=== PATIENT | male | born 1970 ===

== ENCOUNTER 2017-03-18 15:42 | Emergency (ER) | payer SELFPAY ==
--- NOTE | 2017-03-18 16:01 | C.PDOC ---
History Of Present Illness 46 yo male w/o significant PMHx come in for evaluation of chills, body aches, sore throat and cough gradually developed for past week. Pt reports, ' was unable to sleep last night due to cough". Pt admits, use OTC medication without improvement. Otherwise, pt denies high fever, headache, drooling, dyspnea, wheezing, abd. pain, V/D, food intolerance, UTI sx, rash. At the time of evaluation, pt is awake, not in any apparent distress. Time Seen by Provider: 03/18/17 16:01 History Per: Patient History/Exam Limitations: None Onset/Duration Of Symptoms: Days (1 week) Current Symptoms Are (Timing): Still Present Past Medical History Reviewed: Historical Data, Nursing Documentation, Vital Signs Vital Signs: Last Vital Signs Temp 98.6 F 03/18/17 16:03 Pulse 78 03/18/17 18:08 Resp 16 03/18/17 18:08 BP 138/75 03/18/17 18:08 Pulse Ox 98 03/18/17 18:08 Family History: States: No Known Family Hx - Social History Hx Tobacco Use: No Hx Alcohol Use: No Hx Substance Use: No - Immunization History Hx Tetanus Toxoid Vaccination: No Hx Influenza Vaccination: No Hx Pneumococcal Vaccination: No Review Of Systems Except As Marked, All Systems Reviewed And Found Negative. Constitutional: Positive for: Chills, Other ((+) body aches). Negative for: Fever ENT: Positive for: Throat Pain (sore throat) Respiratory: Positive for: Cough. Negative for: Wheezing Gastrointestinal: Negative for: Vomiting, Abdominal Pain, Diarrhea Neurological: Negative for: Headache Physical Exam - Physical Exam Appears: Well, Non-toxic, No Acute Distress Skin: Normal Color, Warm, Dry, No Rash Head: Normacephalic Eye(s): bilateral: PERRL Ear(s): Bilateral: Normal Nose: No Flaring, Discharge (copious clear B/L with congestion B/L) Oral Mucosa: Moist, No Drooling Tongue: Normal Appearing Lips: Normal Appearing Throat: Erythema (mild B/L), No Exudate, No Drooling Neck: Trachea Midline, Supple Cardiovascular: Rhythm Regular Respiratory: No Decreased Breath Sounds, No Accessory Muscle Use, No Stridor, Wheezing (scattered Right base exp wheezing) Gastrointestinal/Abdominal: Soft, No Tenderness, No Distention, No Guarding Back: No CVA Tenderness Extremity: Normal ROM, No Deformity, No Swelling Neurological/Psych: Oriented x3, Normal Speech ED Course And Treatment O2 Sat by Pulse Oximetry: 98 (RA) Pulse Ox Interpretation: Normal - Radiology CXR: Interpreted by Me, Viewed By Me, Read By Radiologist CXR Interpretation: Yes: No Acute Disease Progress Note: On re-eval, pt is awake, comforatble, playful, not in any apparent distress. Fever improved, hemodynamicaly stable. Non-toxic. Tolerate Po well in ED. No evidence of dehydration. PulseOx 98% RA. ENT: no acute findings. neck: Supple, (-) meningeal sign. Lungs: CTA B/L, BS equal B/L. CVS : (+)S1S2, reg. Abd: benign. Neuorlogicaly intact. CXR review and appears normal. INfluenza (-). results review with PT, has clinical findings c/w brinchitis. Pt advised. ref. to F/u with PMD in 2-3 days for re-eval. return if any new changes. Medical Decision Making Medical Decision Making: PLAN: * CXR * Influenza * Albuterol IH * Motrin PO * Phenergan PO * Prednisone PO Disposition Counseled Patient/Family Regarding: Studies Performed, Diagnosis, Need For Followup, Rx Given - Disposition Referrals: [facility] [Outside] Disposition: HOME/ ROUTINE Disposition Time: 17:51 Condition: STABLE Additional Instructions: ENCOURAGE FLUIDS TAKE MEDICATION PRESCRIBED FOLLOW UP WITH PMD IN2 -3 DAYS FOR RE-EVALUATION. RETURN TO ED IF ANY WORSENING OR NEW CHANGES. 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 - Scribe Statement The provider has reviewed the documentation as recorded by the Aureliaibe Adilia Jiang All medical record entries made by the Trey were at my direction and personally dictated by me. I have reviewed the chart and agree that the record accurately reflects my personal performance of the history, physical exam, medical decision making, and the department course for this patient. I have also personally directed, reviewed, and agree with the discharge instructions and disposition.
[2017-03-18 16:05] VITALS: RESP 16; TEMP 98.6; O2SAT 98
[2017-03-18] MEDS ORDERED: Albuterol-Ipratrop 3 mg / 0.5 (3 ml) UD IH STA (16:30)
[2017-03-18] MEDS ORDERED: Promethazine/Cod 6.25mg-10mg/5ml Syr UD PO STA (16:30)
[2017-03-18] MEDS ORDERED: Promethazine/Cod 6.25mg-10mg/5ml Syr UD ONE (16:45)
[2017-03-18] MEDS ORDERED: Albuterol-Ipratrop 3 mg / 0.5 (3 ml) UD ONE ×2 (16:46→17:22)
--- NOTE | 2017-03-18 17:10 | RAD ---
HISTORY: Cough COMPARISON: Comparison is made with 02/10/2015 TECHNIQUE: Chest PA and lateral FINDINGS: LUNGS: No active pulmonary disease. PLEURA: No significant pleural effusion identified. No pneumothorax apparent. CARDIOVASCULAR: Normal. OSSEOUS STRUCTURES: No significant abnormalities. VISUALIZED UPPER ABDOMEN: Normal. OTHER FINDINGS: None. IMPRESSION: No active disease.
[2017-03-18 18:09] VITALS: BP 138/75; PULSE 78
== END 2017-03-18 18:08 | disposition home or self-care (01) ==
LOC: C.ER 15:42
DX: J40 Bronchitis, not specified as acute or chronic (principal)